=== PATIENT | male | born 1985 | race Caucasian/White ===

== ENCOUNTER 2018-04-28 22:34 | Emergency (ER) | payer OTHER ==
[~2018-04-28] VITALS: Ht 175.3 cm; Wt 108.9 kg
[2018-04-28 23:18] LABS: ABSOLUTE BASOPHILS 0.1 thou/uL (0.0-0.2); ABSOLUTE LYMPHOCYTES 1.4 thou/uL (0.8-5.3); ABSOLUTE MONOCYTES 0.4 thou/uL (0.0-1.2); ABSOLUTE NEUTROPHILS 9.4 thou/uL (1.6-8.1); BASOPHILS 0.6 %; EOSINOPHILS 0.4 %; HEMATOCRIT 40.9 % (42.0-52.0); HEMOGLOBIN 13.7 gm/dL (14.0-18.0); LYMPHOCYTES 12.4 %; MCH 30.4 pg (26.0-34.0); MCHC 33.5 g/dL (28.0-37.0); MCV 90.8 fL (80.0-100.0); MONOCYTES 3.5 %; MPV 9.7 fl. (7.2-11.1); NUCLEATED RBCS 0 /100WBC; PLATELET COUNT* 243 thou/uL (150-400); POLYS 83.1 %; RDW-CV 13.2 % (10.5-14.5); WBC 11.3 thou/uL (4.0-11.0)
[2018-04-28 23:32] LABS: ANION GAP 12 mmol/L (7-16); BUN 11 mg/dL (7-18); CALCIUM 8.6 mg/dL (8.5-10.1); CHLORIDE 104 mmol/L (98-107); CO2 27 mmol/L (21-32); CREATININE 0.8 mg/dL (0.6-1.3); GLUCOSE 111 mg/dL (70-99); POTASSIUM 3.9 mmol/L (3.5-5.1); SODIUM 143 mmol/L (136-145)
[2018-04-28 23:59] LABS: TROPONIN-I LEVEL <0.06 ng/mL (<0.06)
[2018-04-29 00:06] LABS: ALBUMIN 3.8 g/dL (3.4-5.0); ALKALINE PHOSPHATASE 53 U/L (46-116); LIPASE 94 U/L (73-393); SGOT 17 U/L (15-37); SGPT 41 U/L (30-65); TOTAL BILIRUBIN 0.1 mg/dL (<0.1-1.0); TOTAL PROTEIN 7.8 g/dL (6.4-8.2)
[2018-04-29] MEDS ORDERED: ZOFRAN ODT4 MG DISSOLVE (00:25)
[2018-04-29 00:55] VITALS: BP 105/58
--- NOTE | 2018-04-29 15:40 | EKG ---
[place] [address] ELECTROCARDIOGRAM REPORT Name: RAYRAY ALANIZ IV Room: [facility]#: [id number] Admission: 04/28/18 Attend Phys: Discharge: 04/29/18 Date of : 87 Report #: [id number] THIS REPORT FOR: //name// [facility] ED Test Date: 2018-04-28 Test Time: 23:03:23 Pat Name: RAYRAY ALANIZ Department: Room: Gender: M Transportation Engineering Technician: CRYSTAL : 1985 Requested By: Rupert Lao Order Number: [id number] MD: Jose Luis Mccauley Measurements Intervals Ralph Rate: 79 P: 37 CO: 172 QRS: 57 QRSD: 103 T: 19 QT: 369 QTc: 424 Interpretive Statements Sinus rhythm ST elev, probable normal early repol pattern No previous ECG available for comparison Electronically Signed On 04-29-2018 15:40:37 [employer]AT [employer] by Jose Luis Mccauley [email or web address] <ELECTRONICALLY SIGNED> By: Jose Luis Mccauley MD, [facility] 04/29/18 1540 [id number] [id number] Jose Luis Mccauley MD, FACC /EPI
== END 2018-04-29 00:52 | disposition home or self-care (01) ==
LOC: M.ERS 22:34
PROVIDERS: Emergency Medicine Emergency Medical Services
DX: F10.129 Alcohol abuse with intoxication, unspecified (principal); Y90.6 Blood alcohol level of 120-199 mg/100 ml; R11.2 Nausea with vomiting, unspecified